=== PATIENT | male | born 1960 | race Caucasian/White ===

== ENCOUNTER → 2020-07-17 | Outpatient (CLI) | payer BC | LOC: SJCVCIMAG 07:45 | PROVIDERS: ATTEND Internal Medicine | DX: I37.1 Nonrheumatic pulmonary valve insufficiency (principal); I11.9 Hypertensive heart disease without heart failure; R00.0 Tachycardia, unspecified; R07.89 Other chest pain; E78.5 Hyperlipidemia, unspecified; G47.33 Obstructive sleep apnea (adult) (pediatric); E11.42 Type 2 diabetes mellitus with diabetic polyneuropathy; Z72.89 Other problems related to lifestyle; Z79.82 Long term (current) use of aspirin; Z79.899 Other long term (current) drug therapy; Z88.2 Allergy status to sulfonamides ==

== ENCOUNTER → 2020-07-28 | Outpatient (CLI) | payer BC ==
[~2020-07-28] VITALS: Ht 185.4 cm; Wt 108.4 kg
[~2020-07-28] MED LIST: ALLOPURINOL 10100 M3 PO; JANUMET 50-1,01 EACH PO; LIPITOR 20 MG T20 M1 PO; LISINOPRIL20 MG PO; NEURONTIN 300M300 M2 PO; NORTRIPTYLINE H10 M1 PO
[2020-07-28 08:58] LABS: HEMATOCRIT 43.2 % (42.0-52.0); HEMOGLOBIN 14.3 gm/dL (14.0-18.0); MCH 28.5 pg (26.0-34.0); MCV 86.5 fL (80.0-100.0); RDW 13.8 % (10.5-14.5); WBC 3.3 thou/uL (4.0-11.0)
[2020-07-28 09:05] VITALS: BP 108/77
[2020-07-28 09:08] LABS: CALCIUM 9.4 mg/dL (8.5-10.1); CREATININE 1.1 mg/dL (0.7-1.3); POTASSIUM 4.1 mmol/L (3.5-5.1)
--- NOTE | 2020-07-30 18:26 | CATHLAB ---
[facility] [place] [address] INVASIVE PROCEDURE REPORT Name: BRITTON SRIVASTAVA Room #: REG ESTEBANTejinder Klein#: [id number] Admission: 07/28/20 Attend Phys: Carson Peters Discharge: Date of : 64 Report #: [id number] THIS REPORT FOR: cc: Betty Olmos MD, Julie MD Lammoglia, Francisco J. 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 A PINNACLE 4FR Sheath #[id number] sheath was inserted into the RFA^. Coronary angiography was performed using coronary diagnostic catheters. The right coronary system was accessed and visualized with a AR MOD4FR AR MOD #[id number] catheter. The left coronary system was accessed and visualized with a 4FR JL 5.0 #[id number] catheter. The left ventricle was accessed and visualized with a PIGTAIL catheter. Left ventricular/Aortic Valve gradient assessed via catheter pullback. Hemostasis was obtained with manual pressure following sheath removal without any complications. The patient tolerated the procedure well and there were no complications associated with the procedure. There was no hematoma. [facility] [address] [address] INVASIVE PROCEDURE REPORT Name: YANGIRISHBRITTON Vera Room #: REG [facility] [id number] Admission: 07/28/20 Attend Phys: Carson Salinas Discharge: Date of : 64 Report #: [id number] Intraoperative Conscious Sedation Sedation start time: 1136 Case end Time: 1210 Versed 2 mg Fluoro Time: 7.00 minutes Dose: DAP 6423.00 cGycm2 1986 mGy Contrast Type and Amount: Omnipaque 70 ml Coronary Angiography The patient's coronary anatomy is right dominant. Diagnostic Cath Left Main Large-caliber vessel normal origin bifurcates left anterior descending left circumflex free of high-grade disease LAD Large-caliber type III vessel courses in the anterior interventricular sulcus. Immediately after its origin from the left main it gives rise to 2 diagonal branches are at least moderate in size. These course along the anterolateral wall in a tortuous manner but are free of high-grade disease. The LAD proper continues in the anterior interventricular sulcus terminating as a smaller caliber vessel in the posterior aspect of the left ventricular inferoapical wall. There is mild luminal irregularities noted in its course but no significant high-grade lesions are present. Diagonal 1 Moderate caliber vessel on the anterolateral wall free of high-grade disease Diagonal 2 Moderate caliber vessel that courses along the anterolateral wall without any significant lesions identified Diagonal 3 Small insignificant caliber vessel Circumflex Large-caliber vessel which gives rise to a marginal branches in its proximal portion. This branch immediately bifurcates into a small caliber and significant vessel a moderate caliber vessel coursing on the lateral aspect of the heart tortuous in its course but free of high-grade disease the circumflex proper then continues on posteriorly giving rise to 2 posterior wall branches all of which are free of high-grade disease prior to terminating is a small posterior wall branch OM1 Moderate caliber bifurcating vessel without high-grade lesions noted OM2 Moderate caliber vessel without significant stenosis present as it courses on the lateral aspect of the heart OM3 Small caliber vessel free of high-grade disease Right Coronary Large-caliber vessel with an inferior origin in the [address] [address] INVASIVE PROCEDURE REPORT Name: BRITTON SRIVASTAVA Room #: REG Ernie#: [id number] Admission: 07/28/20 Attend Phys: Carson Salinas Discharge: Date of : 64 Report #: [id number] right cusp is free of high-grade disease of the courses in the AV groove posteriorly giving rise to atrium ventricular branches. It reaches the crux of the heart giving rise to moderate caliber posterior descending artery. No high-grade lesions are noted R PDA Moderate caliber vessel without significant lesions noted Left Ventriculography Left Ventriculography was not performed. Hemodynamics The aortic pressure is 134/89 mmHg with a mean of 86 mmHg. The left ventricular pressure is 161/2 mmHg with a mean of mmHg. The left ventricular end diastolic pressure is 20 mmHg. Pullback from the left ventricle to the aorta revealed no gradient across the aortic valve. Conclusion 1. Essentially normal coronary arteries 2. Abnormal hemodynamics with slightly elevated low ventricular diastolic pressures Recommendations Cardiac Risk Reduction Program <ELECTRONICALLY SIGNED> By: Carson Peters MD 07/30/201824 24 24 Carson Peters MD /INF
== END | disposition home or self-care (01) ==
LOC: CATH 07:19
PROVIDERS: ATTEND Internal Medicine
DX: R07.9 Chest pain, unspecified (principal); R94.39 Abnormal result of other cardiovascular function study; I11.0 Hypertensive heart disease with heart failure; I50.30 Unspecified diastolic (congestive) heart failure; E11.9 Type 2 diabetes mellitus without complications; E78.00 Pure hypercholesterolemia, unspecified; M10.9 Gout, unspecified; Z98.890 Other specified postprocedural states; Z79.899 Other long term (current) drug therapy; Z79.82 Long term (current) use of aspirin; Z87.891 Personal history of nicotine dependence